=== PATIENT | female | born 1960 | race African-American/Black ===

== ENCOUNTER 2022-08-09 14:19 | Inpatient (IN) | payer MEDICARE, MEDICAID ==
[~2022-08-09] VITALS: Ht 182.9 cm; Wt 39.3 kg
[2022-08-09 15:07] LABS: Eosinophils # (auto) 0 10 ^3/uL (0-0.8); Hemoglobin 11.6 g/dL (12.2-16.2); Monocytes # (auto) 0.3 10 ^3/uL (0-1.3)
[2022-08-09 15:10] LABS: Basophils # (auto) 0.1 10 ^3/uL (0-0.2); Basophils % (auto) 1.7 % (0.0-2.0); Eosinophils % (auto) 0.6 % (0.0-7.0); Hematocrit 35.7 % (36.0-46.0); Lymphocytes # (auto) 1.3 10 ^3/uL (0.4-5.4); Lymphocytes % (auto) 33.1 % (10.0-50.0); Mean Corpuscular Hemoglobin 26.8 pg (28.0-32.0); Mean Corpuscular Hgb Conc. 32.5 g/dL (32.0-36.0); Mean Corpuscular Volume 82.5 fL (80.0-100.0); Monocytes % (auto) 7.1 % (0.0-12.0); Neutrophils # (auto) 2.3 10 ^3/uL (1.6-8.6); Neutrophils % (auto) 57.5 % (37.0-80.0); Nucleated Red Blood Cells % 0.3 %; Red Blood Cells 4.32 10^6/uL (4.0-5.20)
[2022-08-09 15:38] LABS: Albumin 3.6 g/dL (3.4-5.0); BUN/Creatinine Ratio 44.7; Bilirubin, Total 0.8 mg/dL (0.2-1.0); Calcium 10.2 mg/dL (8.5-10.1); Potassium 3.4 mmol/L (3.5-5.1); Total Protein 7.1 g/dL (6.4-8.2)
[2022-08-09 18:39] LABS: Urine Blood Negative /uL (Negative); Urine Specific Gravity 1.022 (1.001-1.035)
[2022-08-09] MEDS ORDERED: IPRATROPIUM BROM 0.5 MG/2.5ML INH SOL NEB ONE (19:00)
[2022-08-09] MEDS ORDERED: DexAMETHasone SOD PHOS 10MG/1ML VIAL INJ IV ONE (19:00)
[2022-08-09] MEDS ORDERED: MAGNESIUM SULFATE 1GM/100ML 100 ML IV ONE (19:00)
[2022-08-09] MEDS ORDERED: POTASSIUM EFFERVESENT TAB 25 MEQ PO ONE ×2 (19:00→20:45)
[2022-08-09] MEDS ORDERED: ALBUTEROL SULF 2.5 MG/0.5ML(0.5%) NEB SOLN NEB ONE (19:00)
[2022-08-09] MEDS ORDERED: ASPirin 325 MG TAB PO ONE (20:15)
[2022-08-09] MEDS ORDERED: KETOROLAC TROMETH 30 MG/ML 1ML VIAL IV ONE (20:15)
[2022-08-09] MEDS ORDERED: MORPHINE SULFATE INJ 2 MG/ml SYRG IV PRN (20:30)
[2022-08-09] MEDS ORDERED: NITROGLYCERIN 0.4 MG SL TAB SL PRN (20:30)
[2022-08-09] MEDS ORDERED: hydrALAZINE HCL 20 MG/ML VL IV PRN (20:45)
[2022-08-09] MEDS: SODIUM CHLORIDE 0.9% 1,000 ML IV SCH (20:53)
[2022-08-09 21:33] LABS: Cholesterol 148 mg/dL (< 200); HDL Cholesterol 86 mg/dL (40-59); LDL Cholesterol 65 mg/dL (< 100); Triglycerides 55 mg/dL (< 150)
[2022-08-10 04:09] LABS: Hemoglobin 10.8 g/dL (12.2-16.2); White Blood Cell 2.8 10^3/uL (4.4-10.8)
[2022-08-10 04:12] LABS: Hematocrit 34.4 % (36.0-46.0); Mean Corpuscular Hemoglobin 25.9 pg (28.0-32.0); Mean Corpuscular Hgb Conc. 31.4 g/dL (32.0-36.0); Mean Corpuscular Volume 82.4 fL (80.0-100.0); Red Blood Cells 4.17 10^6/uL (4.0-5.20)
[2022-08-10 04:43] LABS: Albumin 3.3 g/dL (3.4-5.0); BUN/Creatinine Ratio 32.5; Bilirubin, Total 0.4 mg/dL (0.2-1.0); Calcium 9.9 mg/dL (8.5-10.1); Total Protein 6.8 g/dL (6.4-8.2)
[2022-08-10 04:52] LABS: Band Neutrophils % (manual) 0; Basophils % (manual) 0 (0.0-2.0); Blast Cells 0; Eosinophils % (manual) 0 (0-7); Metamyelocytes % 0; Myelocytes % 0; Promyelocytes % 0; Reactive Lymphocytes 0
[2022-08-10 08:10] LABS: Lymphocytes % (manual) 8 (10.0-50.0); Monocytes % (manual) 1 (0-12)
[2022-08-10 10:37] LABS: Free T4 (Free Thyroxine) 3.65 ng/dL (0.89-1.76)
[2022-08-10 10:38] LABS: T3 Total 3.39 ng/mL (0.60-1.81)
[2022-08-10] MEDS: ENOXAPARIN SOD 40 MG/0.4 ML SYRINGE SC SCH ×2 (10:59→11:05)
[2022-08-10] MEDS ORDERED: PROPRANOLOL HCL 20 MG TAB PO ONE (12:15)
[2022-08-10] MEDS: PROPRANOLOL HCL 20 MG TAB PO SCH ×2 (13:06→22:11)
[2022-08-10] MEDS: SODIUM CHLORIDE 0.9% 1,000 ML IV SCH ×2 (14:11→22:11)
[2022-08-10] MEDS: methIMAzole 5 MG TAB PO SCH ×2 (14:17→22:11)
[2022-08-10 16:27] VITALS: BP 154/82
[2022-08-10 16:58] VITALS: BP 154/82
[2022-08-10 22:00] VITALS: BP 149/80
[2022-08-11 05:00] VITALS: BP 123/63
[2022-08-11] MEDS: PROPRANOLOL HCL 20 MG TAB PO SCH ×3 (06:23→22:21)
[2022-08-11] MEDS: methIMAzole 5 MG TAB PO SCH ×3 (06:24→22:20)
[2022-08-11 09:09] VITALS: BP 110/60
[2022-08-11 13:00] VITALS: BP 135/82
[2022-08-11 17:00] VITALS: BP 151/80
[2022-08-11] MEDS: SODIUM CHLORIDE 0.9% 1,000 ML IV SCH (17:54)
[2022-08-11] MEDS: ACETAMINOPHEN 325 MG TAB PO PRN (20:23)
[2022-08-11 22:00] VITALS: BP 135/73
[2022-08-12 05:00] VITALS: BP 133/79
[2022-08-12] MEDS: methIMAzole 5 MG TAB PO SCH ×3 (05:49→21:49)
[2022-08-12] MEDS: PROPRANOLOL HCL 20 MG TAB PO SCH ×3 (05:50→21:50)
[2022-08-12 08:00] VITALS: BP 124/80
[2022-08-12] MEDS: ENOXAPARIN SOD 40 MG/0.4 ML SYRINGE SC SCH (08:32)
[2022-08-12 12:00] VITALS: BP 132/71
[2022-08-12 16:00] VITALS: BP 119/63
[2022-08-12 22:00] VITALS: BP 123/71
[2022-08-13 05:00] VITALS: BP 145/81
[2022-08-13] MEDS: methIMAzole 5 MG TAB PO SCH ×3 (05:31→22:22)
[2022-08-13] MEDS: PROPRANOLOL HCL 20 MG TAB PO SCH ×3 (05:32→22:22)
[2022-08-13 08:43] VITALS: BP 146/81
[2022-08-13] MEDS: ENOXAPARIN SOD 40 MG/0.4 ML SYRINGE SC SCH (09:38)
[2022-08-13 13:00] VITALS: BP 145/78
[2022-08-13 16:54] VITALS: BP 123/62
[2022-08-13] MEDS: ACETAMINOPHEN 325 MG TAB PO PRN (17:20)
[2022-08-14 00:23] VITALS: BP 117/52
[2022-08-14] MEDS: methIMAzole 5 MG TAB PO SCH (05:37)
[2022-08-14] MEDS: PROPRANOLOL HCL 20 MG TAB PO SCH (05:40)
[2022-08-14 06:24] VITALS: BP_SYST 152; BP_SYST 167; BP_DIAS 86; BP_DIAS 92
[2022-08-14] MEDS: ENOXAPARIN SOD 40 MG/0.4 ML SYRINGE SC SCH (08:38)
[2022-08-14 10:08] VITALS: BP 159/76
[2022-08-14] MEDS ORDERED: METH10TA6 PO (10:51)
[2022-08-14] MEDS ORDERED: METO-6 PO (10:52)
[2022-08-14] MEDS ORDERED: PROP40TA59 PO (10:57)
[2022-08-14 11:03] VITALS: BP 122/65
[2022-08-14 12:13] VITALS: BP 114/62
== END 2022-08-14 14:06 | disposition home or self-care (01) | DRG 643 ==
LOC: ER 14:19 → TELE 20:32 → TELE-WESTW 08-10 16:18
PROVIDERS: ADMIT Nurse Practitioner Family; ATTEND Internal Medicine
DX: E05.00 Thyrotoxicosis with diffuse goiter without thyrotoxic crisis or storm (principal); G93.41 Metabolic encephalopathy; I26.99 Other pulmonary embolism without acute cor pulmonale; R64 Cachexia; Z68.1 Body mass index [BMI] 19.9 or less, adult; E83.52 Hypercalcemia; R94.31 Abnormal electrocardiogram [ECG] [EKG]; R00.0 Tachycardia, unspecified; Z20.822 Contact with and (suspected) exposure to COVID-19; R77.8 Other specified abnormalities of plasma proteins; E87.6 Hypokalemia; I10 Essential (primary) hypertension; D64.9 Anemia, unspecified; J44.9 Chronic obstructive pulmonary disease, unspecified; H05.20 Unspecified exophthalmos; Z90.710 Acquired absence of both cervix and uterus; Z90.81 Acquired absence of spleen
CPT/HCPCS: 36415; 71046; 76536; 80053; 80061; 81003; 83036; 83735; 83880; 84439; 84443; 84480; 84484; 85007; 85025; 85027; 85379; 87426; 93005; 93306; 94640; 96365; 96375; G0378; J1100; J1885

== ENCOUNTER 2023-03-23 19:13 | Emergency (ER) | payer MEDICARE, MEDICAID ==
[~2023-03-23] VITALS: Ht 177.8 cm; Wt 39.9 kg
[~2023-03-23 19:13] MED LIST: METH-552 PO; PROP40TA6 PO
[2023-03-23 22:00] VITALS: BP 138/78
[2023-03-23 22:19] LABS: Hematocrit 39.8 % (36.0-46.0); Hemoglobin 12.7 g/dL (12.2-16.2); Mean Corpuscular Volume 83.5 fL (80.0-100.0); Red Blood Cells 4.77 10^6/uL (4.0-5.20); White Blood Cell 6.1 10^3/uL (4.4-10.8)
[2023-03-23 22:21] LABS: Mean Corpuscular Hemoglobin 26.5 pg (28.0-32.0); Mean Corpuscular Hgb Conc. 31.8 g/dL (32.0-36.0); Red Cell Distribution Width 14.6 % (11.8-14.3)
[2023-03-23 22:50] LABS: INR 1.04 (0.9-1.15); Partial Thromboplastin Time 25.1 SEC (24.5-34.5)
[2023-03-23 23:00] LABS: Calcium 9.7 mg/dL (8.5-10.1); Potassium 3.3 mmol/L (3.5-5.1)
[2023-03-23 23:01] LABS: Band Neutrophils % (manual) 0; Basophils % (manual) 0 (0.0-2.0); Blast Cells 0; Eosinophils % (manual) 0 (0-7); Metamyelocytes % 0; Myelocytes % 0; Promyelocytes % 0; Reactive Lymphocytes 0
[2023-03-23 23:06] LABS: Albumin 3.7 g/dL (3.4-5.0); BUN/Creatinine Ratio 22.2 (10.0-20.0); Bilirubin, Total 0.4 mg/dL (0.2-1.0); Total Protein 8.3 g/dL (6.4-8.2)
[2023-03-23 23:25] LABS: Lymphocytes % (manual) 32 (10.0-50.0); Monocytes % (manual) 5 (0-12)
[2023-03-24] MEDS ORDERED: POTASSIUM EFFERVESENT TAB 25 MEQ PO ONE (06:30)
[2023-03-24] MEDS ORDERED: methIMAzole 5 MG TAB PO ONE (07:30)
== END 2023-03-24 07:30 | disposition home or self-care (01) ==
LOC: ER 19:13
DX: R06.02 Shortness of breath (principal); E87.6 Hypokalemia; E86.0 Dehydration; R79.89 Other specified abnormal findings of blood chemistry; J45.909 Unspecified asthma, uncomplicated; I10 Essential (primary) hypertension; Z90.710 Acquired absence of both cervix and uterus
CPT/HCPCS: 36415; 71045; 80053; 83880; 84443; 84484; 85007; 85027; 85610; 85730